=== PATIENT | female | born 1945 | race Caucasian/White ===

== ENCOUNTER → 2018-08-09 | Day surgery (SDC) | payer MEDICARE, OTHER ==
[2018-08-07 15:03] LABS: BASOPHILS # (AUTO) 0.1 (0.0-0.1); BASOPHILS % 0.8 % (0.0-1.0); EOSINOPHILS # (AUTO) 0.6 (0.0-0.4); EOSINOPHILS % 8.5 % (0.0-6.0); HEMATOCRIT 39.7 % (34.2-44.1); LYMPHOCYTES # (AUTO) 2.3 (1.0-3.2); LYMPHOCYTES % 30.3 % (18.0-39.1); MEAN CORPUSCULAR HEMOGLOBIN 31.1 pg (28-32); MEAN CORPUSCULAR HGB CONC 32.7 g/dL (31-35); MONOCYTES # (AUTO) 0.5 (0.2-0.8); MONOCYTES % 6.9 % (4.4-11.3); NEUTROPHILS # (AUTO) 4.1 (2.1-6.9); NEUTROPHILS % 53.4 % (38.7-80.0); PLATELET COUNT 346 x10e3/uL (140-360); RED BLOOD COUNT 4.18 x10e6/uL (3.6-5.1); RED CELL DISTRIBUTION WIDTH 13.4 % (11.7-14.4)
[~2018-08-09] MED LIST: ASPIR-LOW81 MG PO; ATENOLOL25 MG PO; BUPIVACAINE 0.25% 30ML SDV INJ ONE; CELEBREX PO; FENTANYL CITRATE/PF 100MCG/2 ML INJ ONE; IOPAMIDOL 200 MG/ML 20 ML VIAL IT ONE; LATANOPROST2.5 ML OP; LIDOCAINE HCL 1% 30ML-PF VIAL ONE; LIDOCAINE HCL 2% LOCAL INJ 5 ML SDV VIAL INJ ONE; METOPROLOL SUCC25 MG PO; MIDAZOLAM HCL 2 MG/2 ML VIAL ONE; PROPOFOL IV EMULSION 10 MG/ML 20 ML VIAL ONE; TRIAMCINOLONE ACET 40 MG/ML VIAL ONE; ULTRAM50 MG PO; XANAX XR1 MG PO; XOPENEX HFA15 GM INH; XOPENEX0.31 MG/3 INH; ZYRTEC10 M3 PO; vitamin b12 PO
[2018-08-09 08:05] VITALS: BP 129/87
== END | disposition home or self-care (01) ==
LOC: OR 05:38
PROVIDERS: ATTEND Physical Medicine & Rehabilitation Pain Medicine
DX: M46.1 Sacroiliitis, not elsewhere classified (principal); M62.838 Other muscle spasm; M79.18 Myalgia, other site; M54.16 Radiculopathy, lumbar region; J44.9 Chronic obstructive pulmonary disease, unspecified; I10 Essential (primary) hypertension; F17.210 Nicotine dependence, cigarettes, uncomplicated; Z01.810 Encounter for preprocedural cardiovascular examination; Z01.812 Encounter for preprocedural laboratory examination; Z79.82 Long term (current) use of aspirin
CPT/HCPCS: 20552; G0260; 36415; 76000; 85025; 93005; J2001; J2250; J3010; J3301; Q9967

== ENCOUNTER → 2019-07-18 | Day surgery (SDC) | payer MEDICARE, OTHER ==
[2019-07-15 13:05] LABS: BASOPHILS % 0.7 % (0.0-1.0); EOSINOPHILS # (AUTO) 0.3 (0.0-0.4); EOSINOPHILS % 6.1 % (0.0-6.0); HEMATOCRIT 37.8 % (34.2-44.1); HEMOGLOBIN 11.9 g/dL (12.0-16.0); LYMPHOCYTES # (AUTO) 1.7 (1.0-3.2); LYMPHOCYTES % 29.8 % (18.0-39.1); MEAN CORPUSCULAR HEMOGLOBIN 29.6 pg (28-32); MEAN CORPUSCULAR HGB CONC 31.5 g/dL (31-35); MONOCYTES # (AUTO) 0.5 (0.2-0.8); MONOCYTES % 9.1 % (4.4-11.3); NEUTROPHILS % 53.9 % (38.7-80.0); PLATELET COUNT 264 x10e3/uL (140-360); RED BLOOD COUNT 4.02 x10e6/uL (3.6-5.1); RED CELL DISTRIBUTION WIDTH 13.3 % (11.7-14.4)
[~2019-07-18] MED LIST changes: +ALPRAZOLAM1 MG PO; +ASPIR 8181 MG PO; +MAGNESIUM OXID400 MG PO; +MELOXICAM7.5 MG PO; +POTASSIUM CITR10 MEQ PO; +VIT B12 PO; +XOPENEX0.63 MG/3 INH; +ZYRTEC-D TABLE1 EACH PO
[2019-07-18 07:30] VITALS: BP 117/60
--- NOTE | 2019-07-18 09:27 | Diagnostic Imaging Report ---
OR Fluoroscopy: IMPRESSION: Fluoroscopy service provided in the OR. Interpretation not requested. Signed by: Jonathan Chilel MD on 07/18/2019 9:24 AM
--- OUTSIDE RECORDS SUMMARY | 2019-07-18 10:32 | XMS REPORT ---
Author Author [facility] Organization [facility] Address [address] [place] [address] Phone Unavailable Care Team Providers Care Lens Generator Name Role Phone Sunitha GARRETT Attphys Unavailable JOVANNA NAYAK Attphys Unavailable Problems This patient has no known problems. Allergies, Adverse Reactions, Alerts This patient has no known allergies or adverse reactions. Medications This patient has no known medications. Procedures This patient has no known procedures. Results Test Description Test Time Test Comments Results Result Comments Source FLURO UP TO 1 HR-GENERAL 2019-07-18 09:24:00 [place] [address] Patient Name: JYANA KUMAR MR #: [id number] : 1945 Age/Sex: 74/F Req #: [id number] Adm Physician: Ordered by: MARLON GARRETT MD Report #: [id number] Location: OR Room/Bed: Procedure: [id number] DX/FLURO UP TO 1 HR-GENERAL Exam Date: 07/18/19 Exam Time: 0650 REPORT STATUS: Signed OR Fluoroscopy: IMPRESSION: Fluoroscopy service provided in the OR. Interpretation not requested. Signed by: Johanna Juan MD on 07/18/2019 9:24 AM Dictated By: JOHANNA JUAN MD 3 Transcribed By: MELINDA on 07/18/19923 COPY TO: MARLON GARRETT MD KNEE LEFT THREE VIEWS 2018-11-12 11:33:00 [place] [address] Patient Name: JAYNA KUMAR MR #: [id number] : 1945 Age/Sex: 73/F Req #: [id number] Adm Physician: Ordered by: JOVANNA NAYAK MD Report #: [id number] Location: [facility] Room/Bed: Procedure: [id number] DX/KNEE LEFT THREE VIEWS Exam Date: 11/12/18 Exam Time: 1120 REPORT STATUS: Signed EXAMINATION: KNEE LEFT THREE VIEWS INDICATION: Left knee pain COMPARISON: None FINDINGS: No acute fracture or dislocation. Alignment is anatomic. No substantial degenerative change. The soft tissues appear unremarkable. No joint effusion. IMPRESSION: No acute osseous injury. Signed by: Colette Cobos MD on 11/12/2018 11:33 AM Dictated By: COLETTE COBOS MD 113 Transcribed By: MELINDA on 11/12/18 113 COPY TO: JOVANNA NAYAK MD HIP LEFT 2-3 VW (+/- PELVIS) 2018-11-12 11:32:00 [place] [address] Patient Name: JAYNA KUMAR MR #: [id number] : 1945 Age/Sex: 73/F Req #: [id number] Adm Physician: Ordered by: JOVANNA NAYAK MD Report #: [id number] Location: RAD Room/Bed: Procedure: [id number] DX/HIP LEFT 2-3 VW (+/- PELVIS) Exam Date: Exam Time: REPORT STATUS: Signed EXAMINATION: HIP LEFT 2-3 VW (+/- PELVIS) INDICATION: Left hip pain COMPARISON: None FINDINGS: No acute fracture or dislocation. Severe degenerative changes of the left hip joint with [id number]-[id number] contact, osteophyte formation, and subchondral sclerosis. IMPRESSION: No acute osseous injury. Severe left hip degenerative changes. Signed by: Colette Cobos MD on 11/12/2018 11:32 AM Dictated By: COLETTE COBOS MD 1132 Transcribed By: MELINDA on 11/12/18 1132 COPY TO: JOVANNA NAYAK MD US EXTREMITY COFFEY NON-VAS 2018-08-23 15:57:00 [place] [address] Patient Name: JAYNA KUMAR MR #: [id number] : 1945 Age/Sex: 73/F Req #: [id number] Adm Physician: Ordered by: MARLON GARRETT MD Report #: [id number] Location: Room/Bed: Procedure: [id number] US/US EXTREMITY COFFEY NON-VAS Exam Date: 08/23/18 Exam Time: 1519 REPORT STATUS: Signed Exam: Ultrasound of the medial left thigh History: Left thigh tenderness Comparison: None available Findings: Real-time evaluation of the medial left thigh and the right medial thigh for comparison reveals no evidence of a soft tissue mass abscess or significant cellulitis. Impression: Normal study. Signed by: Dr. Eh Ott DO on 08/23/2018 3:58 PM Dictated By: EH OTT DO 1558 Transcribed By: MELINDA on 08/23/18 1558 COPY TO: MARLON GARRETT MD
== END | disposition home or self-care (01) ==
LOC: OR 05:38
PROVIDERS: ATTEND Physical Medicine & Rehabilitation Pain Medicine
DX: M46.1 Sacroiliitis, not elsewhere classified (principal); G57.00 Lesion of sciatic nerve, unspecified lower limb; M70.62 Trochanteric bursitis, left hip; M16.12 Unilateral primary osteoarthritis, left hip; M62.838 Other muscle spasm; J44.9 Chronic obstructive pulmonary disease, unspecified; Z01.810 Encounter for preprocedural cardiovascular examination; Z01.812 Encounter for preprocedural laboratory examination; Z11.59 Encounter for screening for other viral diseases; Z87.891 Personal history of nicotine dependence
CPT/HCPCS: 20552; 20610; G0260; 36415; 76000; 85025; 87635; 93005; J2001; J2250; J3010; J3301; Q9967

== ENCOUNTER → 2019-09-12 | Day surgery (SDC) | payer MEDICARE, OTHER ==
[2019-09-06 15:58] LABS: BASOPHILS # (AUTO) 0.1 (0.0-0.1); BASOPHILS % 0.7 % (0.0-1.0); EOSINOPHILS # (AUTO) 0.2 (0.0-0.4); EOSINOPHILS % 2.4 % (0.0-6.0); LYMPHOCYTES # (AUTO) 1.9 (1.0-3.2); LYMPHOCYTES % 24.4 % (18.0-39.1); MEAN CORPUSCULAR HEMOGLOBIN 30.1 pg (28-32); MEAN CORPUSCULAR HGB CONC 31.6 g/dL (31-35); MEAN CORPUSCULAR VOLUME 95.2 fL (81-99); MONOCYTES # (AUTO) 0.6 (0.2-0.8); MONOCYTES % 8.2 % (4.4-11.3); NEUTROPHILS # (AUTO) 4.9 (2.1-6.9); PLATELET COUNT 276 x10e3/uL (140-360); RED BLOOD COUNT 3.99 x10e6/uL (3.6-5.1); RED CELL DISTRIBUTION WIDTH 14.7 % (11.7-14.4)
[~2019-09-12] MED LIST changes: -BUPIVACAINE 0.25% 30ML SDV INJ ONE; -FENTANYL CITRATE/PF 100MCG/2 ML INJ ONE; -MIDAZOLAM HCL 2 MG/2 ML VIAL ONE
[2019-09-12 08:30] VITALS: BP 124/64
== END | disposition home or self-care (01) ==
LOC: OR 05:25
PROVIDERS: ATTEND Physical Medicine & Rehabilitation Pain Medicine
DX: M16.12 Unilateral primary osteoarthritis, left hip (principal); M70.62 Trochanteric bursitis, left hip; M46.1 Sacroiliitis, not elsewhere classified; J44.9 Chronic obstructive pulmonary disease, unspecified; I10 Essential (primary) hypertension; Z01.810 Encounter for preprocedural cardiovascular examination; Z01.812 Encounter for preprocedural laboratory examination; Z11.59 Encounter for screening for other viral diseases
CPT/HCPCS: 20610; 36415; 77002; 85025; 93005; J2001 ×2; J2704; J3301; Q9967; U0002; 76000

== ENCOUNTER → 2019-11-21 | Day surgery (SDC) | payer MEDICARE, OTHER ==
[2019-11-18 14:39] LABS: BASOPHILS # (AUTO) 0.1 (0.0-0.1); BASOPHILS % 0.8 % (0.0-1.0); EOSINOPHILS # (AUTO) 0.2 (0.0-0.4); EOSINOPHILS % 3.7 % (0.0-6.0); HEMATOCRIT 43.2 % (34.2-44.1); HEMOGLOBIN 13.5 g/dL (12.0-16.0); LYMPHOCYTES # (AUTO) 1.8 (1.0-3.2); LYMPHOCYTES % 30.3 % (18.0-39.1); MEAN CORPUSCULAR HEMOGLOBIN 30.1 pg (28-32); MEAN CORPUSCULAR HGB CONC 31.3 g/dL (31-35); MEAN CORPUSCULAR VOLUME 96.4 fL (81-99); MONOCYTES # (AUTO) 0.5 (0.2-0.8); MONOCYTES % 7.7 % (4.4-11.3); NEUTROPHILS # (AUTO) 3.4 (2.1-6.9); NEUTROPHILS % 57.2 % (38.7-80.0); PLATELET COUNT 377 x10e3/uL (140-360); RED BLOOD COUNT 4.48 x10e6/uL (3.6-5.1); RED CELL DISTRIBUTION WIDTH 12.6 % (11.7-14.4)
[~2019-11-21] MED LIST changes: +TYLENOL # 31 EA PO
[2019-11-21 07:25] VITALS: BP 133/72
== END | disposition home or self-care (01) ==
LOC: OR 05:19
PROVIDERS: ATTEND Physical Medicine & Rehabilitation Pain Medicine
DX: M16.12 Unilateral primary osteoarthritis, left hip (principal); M46.1 Sacroiliitis, not elsewhere classified; M70.62 Trochanteric bursitis, left hip; I10 Essential (primary) hypertension; J44.9 Chronic obstructive pulmonary disease, unspecified; F41.9 Anxiety disorder, unspecified; Z01.812 Encounter for preprocedural laboratory examination; Z11.59 Encounter for screening for other viral diseases
CPT/HCPCS: 20610; 36415; 77002; 85025; 88305; J2001 ×2; J2704; J3301; Q9967; U0002; 77003; 88112

== ENCOUNTER 2019-12-23 08:05 | Observation (INO) | payer MEDICARE, OTHER ==
[~2019-12-23] VITALS: Ht 160 cm; Wt 59.9 kg
[2019-12-23] MEDS: SODIUM CHLORIDE 0.9% 1000ML 1,000 ML IV SCH ×2 (03:00→17:08)
[~2019-12-23 08:05] MED LIST changes: +BUPIVACAINE 7.5MG/ML /DEXTROSE 82.5MG/ML 2 ML AMP INJ ONE; -IOPAMIDOL 200 MG/ML 20 ML VIAL IT ONE; -LIDOCAINE HCL 1% 30ML-PF VIAL ONE; -LIDOCAINE HCL 2% LOCAL INJ 5 ML SDV VIAL INJ ONE; -PROPOFOL IV EMULSION 10 MG/ML 20 ML VIAL ONE; +ROPIVACAINE 246.25 MG, EPINEPHRINE HCL 1:1000 1ML 0.5 MG, CLONIDINE HCL 0.08 MG, KETORO... INJ ONE; -TRIAMCINOLONE ACET 40 MG/ML VIAL ONE
[2019-12-23] MEDS ORDERED: CELECOXIB 200 MG CAP ONE (08:53)
[2019-12-23] MEDS ORDERED: DEXAMETHASONE SOD PHOS 10 MG/1 ML VIAL ONE (08:54)
[2019-12-23] MEDS ORDERED: CEFAZOLIN SOD 1 GM/NS 50ML 100 ML IV ONE (08:54)
[2019-12-23] MEDS ORDERED: GABAPENTIN 300 MG CAP ONE (08:54)
[2019-12-23] MEDS ORDERED: VANCOMYCIN HCL 1,000 MG ONE (09:38)
[2019-12-23] MEDS ORDERED: SODIUM CHLORIDE 0.9% 500ML 500 ML ONE (09:39)
[2019-12-23] MEDS ORDERED: TRANEXAMIC ACID 1,000 MG/10 ML ML ONE (09:39)
[2019-12-23] MEDS ORDERED: DOCUSATE SODIUM 100 MG CAP PO PRN (11:45)
[2019-12-23] MEDS ORDERED: KETOROLAC TROMETHAMINE 30 MG/ML VIAL IV PRN (11:45)
[2019-12-23] MEDS ORDERED: ACETAMINOPHEN 650 MG SUPP PR PRN (11:45)
[2019-12-23] MEDS ORDERED: ONDANSETRON HCL INJ 2MG/ML 2ML 2 MG/ML VIAL IV PRN (11:45)
[2019-12-23] MEDS ORDERED: HYDROCODONE/APAP 5MG-325MG TAB PO PRN (11:45)
[2019-12-23] MEDS ORDERED: DIPHENHYDRAMINE HCL INJ 50 MG/ML VIAL IV PRN (11:45)
[2019-12-23] MEDS ORDERED: FENTANYL CITRATE/PF 100MCG/2 ML INJ ONE (12:45)
[2019-12-23] MEDS ORDERED: MIDAZOLAM HCL 2 MG/2 ML VIAL ONE (12:45)
[2019-12-23 15:21] VITALS: BP 126/66
[2019-12-23 15:30] VITALS: BP 126/66
[2019-12-23] MEDS ORDERED: ACETAMINOPHEN/CODEINE 300MG - 30MG TAB PO PRN (15:30)
[2019-12-23] MEDS ORDERED: ALPRAZOLAM 0.5 MG PO PRN (15:30)
[2019-12-23] MEDS ORDERED: LEVALBUTEROL HCL SOLN NEBU 0.63 MG/3 ML NEB INH PRN (15:30)
[2019-12-23] MEDS ORDERED: ACETAMINOPHEN 1000 MG/100 ML IV PRN (16:00)
[2019-12-23] MEDS: CEFAZOLIN SOD 1 GM/NS 50ML 50 ML IV SCH (17:08)
[2019-12-23] MEDS: CELECOXIB 100 MG CAP PO SCH (17:08)
[2019-12-23] MEDS: ASPIRIN 325 MG TAB PO SCH (17:08)
[2019-12-23] MEDS: HYDROCODONE/APAP 7.5MG-325MG 1 EA TAB PO PRN (18:28)
[2019-12-23] MEDS ORDERED: PROPOFOL IV EMULSION 10 MG/ML 20 ML VIAL ONE (19:25)
[2019-12-23] MEDS ORDERED: ETOMIDATE 2 MG/ML 10 ML INJ IV ONE (19:25)
[2019-12-23 20:00] VITALS: BP 110/64
[2019-12-23] MEDS ORDERED: LORATADINE 10 MG TAB PO SCH (21:00)
[2019-12-23] MEDS ORDERED: ZOLPIDEM TARTRATE 5 MG TAB PO PRN (21:00)
[2019-12-23] MEDS ORDERED: LATANOPROST(OPTH) 2.5 ML BTL OP SCH (21:00)
[2019-12-24] VITALS: BP 115/56
[2019-12-24] MEDS: CEFAZOLIN SOD 1 GM/NS 50ML 50 ML IV SCH ×2 (03:00→09:35)
[2019-12-24 04:00] VITALS: BP 120/54
[2019-12-24 05:50] LABS: BASOPHILS % 0.2 % (0.0-1.0); HEMOGLOBIN 10.1 g/dL (12.0-16.0); LYMPHOCYTES # (AUTO) 0.9 (1.0-3.2); LYMPHOCYTES % 8.3 % (18.0-39.1); MEAN CORPUSCULAR HEMOGLOBIN 30.3 pg (28-32); MEAN CORPUSCULAR HGB CONC 31.6 g/dL (31-35); MEAN CORPUSCULAR VOLUME 96.1 fL (81-99); MONOCYTES # (AUTO) 1.1 (0.2-0.8); MONOCYTES % 9.5 % (4.4-11.3); NEUTROPHILS # (AUTO) 9.2 (2.1-6.9); NEUTROPHILS % 81.6 % (38.7-80.0); RED BLOOD COUNT 3.33 x10e6/uL (3.6-5.1); RED CELL DISTRIBUTION WIDTH 12.4 % (11.7-14.4)
[2019-12-24 06:24] LABS: ALANINE AMINOTRANSFERASE 11 IU/L (0-55); ALBUMIN 3.1 g/dL (3.5-5.0); ALBUMIN/GLOBULIN RATIO 1.3 (0.8-2.0); ALKALINE PHOSPHATASE 61 IU/L (40-150); ANION GAP 13.1 mmol/L (8-16); BLOOD UREA NITROGEN 15 mg/dL (7-26); BUN/CREATININE RATIO 20 (6-25); CALCIUM 8.2 mg/dL (8.4-10.2); CARBON DIOXIDE 21 mmol/L (22-29); CHLORIDE 110 mmol/L (98-107); CREATININE, SERUM 0.75 mg/dL (0.57-1.11); EST GLOMERULAR FILTRATION RATE > 60 ML/MIN (60-); GLUCOSE 130 mg/dL (74-118); POTASSIUM 4.1 mmol/L (3.5-5.1); SODIUM 140 mmol/L (136-145)
[2019-12-24 07:42] LABS: PLATELET COUNT 315 x10e3/uL (140-360)
[2019-12-24] MEDS: SODIUM CHLORIDE 0.9% 1000ML 1,000 ML IV SCH (07:45)
[2019-12-24 08:05] VITALS: BP 104/55
[2019-12-24] MEDS ORDERED: METOPROLOL SUCCINATE 25 MG TAB XL PO SCH (09:00)
[2019-12-24] MEDS ORDERED: CYANOCOBALAMIN 1,000 MCG TAB PO SCH (09:00)
[2019-12-24] MEDS ORDERED: MAGNESIUM OXIDE 400 MG TAB PO SCH (09:00)
[2019-12-24] MEDS ORDERED: VITAMIN B12 1000 MG PO SCH (09:00)
[2019-12-24] MEDS: ASPIRIN 325 MG TAB PO SCH (09:35)
[2019-12-24] MEDS: CELECOXIB 100 MG CAP PO SCH (09:35)
[2019-12-24] MEDS: HYDROCODONE/APAP 7.5MG-325MG 1 EA TAB PO PRN (11:39)
[2019-12-24 12:20] VITALS: BP 104/61
[2019-12-24] MEDS ORDERED: ONDANSETRON HCL 4 MG ORAL DISINTEGRATING TAB PO PRN (13:45)
[2019-12-24] MEDS ORDERED: ASPIRIN 325 MG TAB PO SCH (17:00)
== END 2019-12-24 14:02 | disposition home health service (06) ==
LOC: OR 08:05 → PACU V 11:42 → MED/SURG 14:42
PROVIDERS: ADMIT Specialist; ATTEND Specialist
DX: M16.12 Unilateral primary osteoarthritis, left hip (principal); J44.9 Chronic obstructive pulmonary disease, unspecified; M81.0 Age-related osteoporosis without current pathological fracture; I11.9 Hypertensive heart disease without heart failure; Z87.891 Personal history of nicotine dependence; Z01.812 Encounter for preprocedural laboratory examination; Z11.59 Encounter for screening for other viral diseases
CPT/HCPCS: 27130; 36415; 72170; 80053; 85025; 86850; 86900; 86920; 97110 ×2; 97116 ×2; 97161; C1713 ×3; C1776 ×2; G0378 ×2; J0171; J0690 ×2; J1100; J1885; J2250; J2405; J2704; J2795; J3010; J3370; J7030 ×2; J7040; U0002

== ENCOUNTER → 2020-04-17 | Outpatient (CLI) | payer MEDICARE, OTHER ==
[~2020-04-17] MED LIST changes: +ASPIRIN81 MG PO; -BUPIVACAINE 7.5MG/ML /DEXTROSE 82.5MG/ML 2 ML AMP INJ ONE; +CALCIUM600 MG PO; +MAGNESIUM PO; -ROPIVACAINE 246.25 MG, EPINEPHRINE HCL 1:1000 1ML 0.5 MG, CLONIDINE HCL 0.08 MG, KETORO... INJ ONE; +VITAMIN D325 MCG PO
== END ==
LOC: RAD 13:01
PROVIDERS: ATTEND Internal Medicine
DX: Z01.818 Encounter for other preprocedural examination (principal); Z11.59 Encounter for screening for other viral diseases
CPT/HCPCS: 71046

== ENCOUNTER 2020-04-21 08:01 | Observation (INO) | payer MEDICARE, OTHER ==
[2020-04-17 13:23] LABS: BASOPHILS % 0.7 % (0.0-1.0); EOSINOPHILS # (AUTO) 0.3 (0.0-0.4); EOSINOPHILS % 4.4 % (0.0-6.0); HEMATOCRIT 37.5 % (34.2-44.1); HEMOGLOBIN 11.7 g/dL (12.0-16.0); LYMPHOCYTES # (AUTO) 1.8 (1.0-3.2); LYMPHOCYTES % 31.6 % (18.0-39.1); MEAN CORPUSCULAR HEMOGLOBIN 29.2 pg (28-32); MEAN CORPUSCULAR HGB CONC 31.2 g/dL (31-35); MEAN CORPUSCULAR VOLUME 93.5 fL (81-99); MONOCYTES # (AUTO) 0.5 (0.2-0.8); MONOCYTES % 9.4 % (4.4-11.3); NEUTROPHILS # (AUTO) 3.1 (2.1-6.9); NEUTROPHILS % 53.7 % (38.7-80.0); PLATELET COUNT 331 x10e3/uL (140-360); RED BLOOD COUNT 4.01 x10e6/uL (3.6-5.1)
[2020-04-17 14:03] LABS: ALANINE AMINOTRANSFERASE 7 IU/L (0-55); ALBUMIN 4.1 g/dL (3.5-5.0); ALBUMIN/GLOBULIN RATIO 1.4 (0.8-2.0); ALKALINE PHOSPHATASE 113 IU/L (40-150); ANION GAP 14.1 mmol/L (8-16); BLOOD UREA NITROGEN 17 mg/dL (7-26); BUN/CREATININE RATIO 22 (6-25); CALCIUM 9.1 mg/dL (8.4-10.2); CARBON DIOXIDE 27 mmol/L (22-29); CHLORIDE 102 mmol/L (98-107); CREATININE, SERUM 0.76 mg/dL (0.57-1.11); EST GLOMERULAR FILTRATION RATE > 60 ML/MIN (60-); GLUCOSE 81 mg/dL (74-118); POTASSIUM 4.1 mmol/L (3.5-5.1); SODIUM 139 mmol/L (136-145)
[~2020-04-21] VITALS: Ht 160 cm; Wt 60.3 kg
[2020-04-21] VITALS (7 sets, daily range): BP systolic 107–116; BP diastolic 55–96
[~2020-04-21 08:01] MED LIST changes: +ROPIVACAINE 246.25 MG, EPINEPHRINE HCL 1:1000 1ML 0.5 MG, CLONIDINE HCL 0.08 MG, KETORO... INJ ONE
[2020-04-21] MEDS ORDERED: DEXAMETHASONE SOD PHOS 10 MG/1 ML VIAL ONE (08:20)
[2020-04-21] MEDS ORDERED: CELECOXIB 200 MG CAP ONE (08:20)
[2020-04-21] MEDS ORDERED: CEFAZOLIN SOD 1 GM/NS 50ML 100 ML IV ONE (08:21)
[2020-04-21] MEDS ORDERED: GABAPENTIN 300 MG CAP ONE (08:21)
[2020-04-21] MEDS ORDERED: BUPIVACAINE 7.5MG/ML /DEXTROSE 82.5MG/ML 2 ML AMP INJ ONE (09:07)
[2020-04-21] MEDS ORDERED: TRANEXAMIC ACID 1,000 MG/10 ML ML ONE (10:22)
[2020-04-21] MEDS ORDERED: SODIUM CHLORIDE 0.9% 500ML 500 ML ONE (10:23)
[2020-04-21] MEDS ORDERED: DIPHENHYDRAMINE HCL INJ 50 MG/ML VIAL IV PRN (12:15)
[2020-04-21] MEDS ORDERED: DOCUSATE SODIUM 100 MG CAP PO PRN (12:15)
[2020-04-21] MEDS ORDERED: KETOROLAC TROMETHAMINE 30 MG/ML VIAL IV PRN (12:15)
[2020-04-21] MEDS ORDERED: ZOLPIDEM TARTRATE 5 MG TAB PO PRN (12:15)
[2020-04-21] MEDS ORDERED: ACETAMINOPHEN 650 MG SUPP PR PRN (12:15)
[2020-04-21] MEDS ORDERED: HYDROCODONE/APAP 5MG-325MG TAB PO PRN (12:15)
[2020-04-21] MEDS ORDERED: PROPOFOL IV EMULSION 10 MG/ML 20 ML VIAL ONE (12:41)
[2020-04-21] MEDS ORDERED: LIDOCAINE HCL 2% LOCAL INJ 5 ML SDV VIAL INJ ONE (12:41)
[2020-04-21] MEDS ORDERED: ONDANSETRON HCL INJ 2MG/ML 2ML 2 MG/ML VIAL ONE (12:41)
[2020-04-21] MEDS ORDERED: EPHEDRINE SULFATE INJ 50 MG/ML VIAL ONE (12:41)
[2020-04-21] MEDS ORDERED: ONDANSETRON HCL INJ 2MG/ML 2ML 2 MG/ML VIAL IV PRN (13:30)
[2020-04-21] MEDS ORDERED: SODIUM CHLORIDE 0.9% 1000ML 1,000 ML IV SCH (15:30)
[2020-04-21] MEDS ORDERED: LEVALBUTEROL HCL SOLN NEBU 0.63 MG/3 ML NEB INH PRN (16:45)
[2020-04-21] MEDS: ASPIRIN 325 MG TAB PO SCH (16:47)
[2020-04-21] MEDS ORDERED: CELECOXIB 200 MG CAP PO SCH (17:00)
[2020-04-21] MEDS: CEFAZOLIN SOD 1 GM/NS 50ML 50 ML IV SCH (17:32)
[2020-04-21] MEDS ORDERED: LATANOPROST(OPTH) 2.5 ML BTL OP SCH (21:00)
[2020-04-21] MEDS ORDERED: LORATADINE 10 MG TAB PO SCH (21:00)
[2020-04-22] VITALS (7 sets, daily range): BP systolic 94–115; BP diastolic 43–55
[2020-04-22] MEDS: HYDROCODONE/APAP 7.5MG-325MG 1 EA TAB PO PRN ×2 (01:10→03:24)
[2020-04-22] MEDS: CEFAZOLIN SOD 1 GM/NS 50ML 50 ML IV SCH ×2 (03:22→07:52)
[2020-04-22 05:41] LABS: BASOPHILS % 0.2 % (0.0-1.0); HEMOGLOBIN 9.2 g/dL (12.0-16.0); LYMPHOCYTES % 8.4 % (18.0-39.1); MEAN CORPUSCULAR HEMOGLOBIN 29.5 pg (28-32); MEAN CORPUSCULAR HGB CONC 31.7 g/dL (31-35); MEAN CORPUSCULAR VOLUME 92.9 fL (81-99); MONOCYTES # (AUTO) 0.7 (0.2-0.8); MONOCYTES % 5.6 % (4.4-11.3); NEUTROPHILS # (AUTO) 9.9 (2.1-6.9); NEUTROPHILS % 85.5 % (38.7-80.0); PLATELET COUNT 285 x10e3/uL (140-360); RED BLOOD COUNT 3.12 x10e6/uL (3.6-5.1)
[2020-04-22 06:05] LABS: ALANINE AMINOTRANSFERASE 14 IU/L (0-55); ALBUMIN 3.1 g/dL (3.5-5.0); ALBUMIN/GLOBULIN RATIO 1.2 (0.8-2.0); ALKALINE PHOSPHATASE 86 IU/L (40-150); ANION GAP 14.3 mmol/L (8-16); BLOOD UREA NITROGEN 18 mg/dL (7-26); BUN/CREATININE RATIO 20 (6-25); CALCIUM 8.5 mg/dL (8.4-10.2); CARBON DIOXIDE 24 mmol/L (22-29); CHLORIDE 104 mmol/L (98-107); EST GLOMERULAR FILTRATION RATE > 60 ML/MIN (60-); GLUCOSE 180 mg/dL (74-118); POTASSIUM 4.3 mmol/L (3.5-5.1); SODIUM 138 mmol/L (136-145)
[2020-04-22] MEDS ORDERED: SODIUM CHLORIDE 0.9% 250ML 250 ML IV ONE (07:45)
[2020-04-22] MEDS: ASPIRIN 325 MG TAB PO SCH (07:47)
[2020-04-22] MEDS ORDERED: MAGNESIUM OXIDE 400 MG TAB PO SCH (09:00)
[2020-04-22] MEDS ORDERED: METOPROLOL SUCCINATE 25 MG TAB XL PO SCH (09:00)
[2020-04-22] MEDS ORDERED: ACETAMINOPHEN 1000 MG/100 ML IV PRN (12:15)
== END 2020-04-22 12:42 | disposition home or self-care (01) ==
LOC: OR 08:01 → PACU V 12:09 → MED/SURG 13:14
PROVIDERS: ADMIT Specialist; ATTEND Specialist
DX: M16.0 Bilateral primary osteoarthritis of hip (principal); I10 Essential (primary) hypertension; Z96.642 Presence of left artificial hip joint; F41.9 Anxiety disorder, unspecified; E78.5 Hyperlipidemia, unspecified; I11.9 Hypertensive heart disease without heart failure; H40.9 Unspecified glaucoma; M81.0 Age-related osteoporosis without current pathological fracture; Z96.641 Presence of right artificial hip joint; Z20.822 Contact with and (suspected) exposure to COVID-19; Z01.818 Encounter for other preprocedural examination
CPT/HCPCS: 27130; 36415 ×2; 72170; 80053 ×2; 85025 ×2; 86850; 86900; 86920; 93005; 97116; 97162; 97530 ×2; C1713 ×2; C1776 ×3; G0378 ×2; J0171; J0690 ×2; J1100; J1885; J2001; J2405; J2704; J2795; J7030; J7040; J7050; U0002

== ENCOUNTER → 2021-05-18 | Outpatient (CLI) | payer MEDICARE, OTHER ==
[~2021-05-18] MED LIST changes: +DIATRIZOATE MEGL/DIATRIZOA SOD 30 ML BTL PO ONE; +IOPAMIDOL 370 MG/ML 200 ML INFUS..BTL INJ ONE; -ROPIVACAINE 246.25 MG, EPINEPHRINE HCL 1:1000 1ML 0.5 MG, CLONIDINE HCL 0.08 MG, KETORO... INJ ONE; +SODIUM CHLORIDE 0.9% 50ML 50 ML ONE
[2021-05-18 15:35] LABS: CREATININE, SERUM 0.81 mg/dL (0.57-1.11)
== END ==
LOC: CT 14:05
PROVIDERS: ATTEND Internal Medicine
DX: K57.32 Diverticulitis of large intestine without perforation or abscess without bleeding (principal)
CPT/HCPCS: 36415; 74176; 82565; 84520; Q9967; 74177

== ENCOUNTER 2021-11-14 12:40 | Inpatient (IN) | payer OTHER ==
[~2021-11-14] VITALS: Ht 160 cm; Wt 60.3 kg
[~2021-11-14 12:40] MED LIST changes: -DIATRIZOATE MEGL/DIATRIZOA SOD 30 ML BTL PO ONE; -IOPAMIDOL 370 MG/ML 200 ML INFUS..BTL INJ ONE; -SODIUM CHLORIDE 0.9% 50ML 50 ML ONE
[2021-11-14] MEDS ORDERED: KETOROLAC TROMETHAMINE 30 MG/ML VIAL IM STA (12:56)
[2021-11-14] MEDS ORDERED: TETANUS/DIPHTHERIA TOX ADULT 0.5 ML SYR IM ONE (13:00)
[2021-11-14] MEDS ORDERED: HYDROCODONE/APAP 5MG-325MG TAB PO ONE (13:00)
[2021-11-14] MEDS ORDERED: ONDANSETRON HCL INJ 2MG/ML 2ML 2 MG/ML VIAL IV PRN (15:00)
[2021-11-14 17:30] VITALS: BP 161/85
[2021-11-14] MEDS ORDERED: ALPRAZOLAM 1 MG PO PRN (18:00)
[2021-11-14] MEDS ORDERED: LEVALBUTEROL HCL SOLN NEBU 0.63 MG/3 ML NEB INH PRN (18:00)
[2021-11-14 18:15] LABS: BASOPHILS % 0.3 % (0.0-1.0); EOSINOPHILS # (AUTO) 0.1 (0.0-0.4); EOSINOPHILS % 0.9 % (0.0-6.0); HEMATOCRIT 37.8 % (34.2-44.1); HEMOGLOBIN 11.6 g/dL (12.0-16.0); LYMPHOCYTES # (AUTO) 1.1 (1.0-3.2); LYMPHOCYTES % 8.3 % (18.0-39.1); MEAN CORPUSCULAR HEMOGLOBIN 30.1 pg (28-32); MEAN CORPUSCULAR HGB CONC 30.7 g/dL (31-35); MEAN CORPUSCULAR VOLUME 98.2 fL (81-99); MONOCYTES # (AUTO) 0.8 (0.2-0.8); NEUTROPHILS # (AUTO) 11.6 (2.1-6.9); NEUTROPHILS % 84.1 % (38.7-80.0); PLATELET COUNT 254 x10e3/uL (140-360); RED BLOOD COUNT 3.85 x10e6/uL (3.6-5.1); RED CELL DISTRIBUTION WIDTH 13.5 % (11.7-14.4)
[2021-11-14] MEDS ORDERED: KETOROLAC TROMETHAMINE 30 MG/ML VIAL IV PRN (18:15)
[2021-11-14 18:24] LABS: ANION GAP 18.9 mmol/L (8-16); CALCIUM 9.1 mg/dL (8.4-10.2); CREATININE, SERUM 0.83 mg/dL (0.57-1.11); POTASSIUM 3.9 mmol/L (3.5-5.1)
[2021-11-14 20:00] VITALS: BP 129/63
[2021-11-14 21:00] VITALS: BP 129/63
[2021-11-14] MEDS: LORATADINE 10 MG TAB PO SCH (21:00)
[2021-11-14] MEDS: LATANOPROST(OPTH) 2.5 ML BTL OP SCH (21:00)
[2021-11-14] MEDS: Morphine 4mg INJECTION 4 MG/ML INJ IV PRN (21:19)
[2021-11-15] VITALS (7 sets, daily range): BP systolic 142–178; BP diastolic 55–74
[2021-11-15] MEDS: SODIUM CHLORIDE 0.9% 1000ML 1,000 ML IV SCH ×2 (00:06→08:30)
[2021-11-15] MEDS: Morphine 4mg INJECTION 4 MG/ML INJ IV PRN ×3 (02:45→20:33)
[2021-11-15] MEDS ORDERED: XANAX1 MG PO (02:58)
[2021-11-15] MEDS ORDERED: ALPRAZOLAM 1 MG TAB PO PRN (03:00)
[2021-11-15 05:33] LABS: INR 0.9
[2021-11-15] MEDS: CYANOCOBALAMIN 1,000 MCG TAB PO SCH (08:27)
[2021-11-15] MEDS: CALCIUM CARBONATE 500 MG CHEWABLE TABS PO SCH (08:28)
[2021-11-15] MEDS: MAGNESIUM OXIDE 400 MG TAB PO SCH (08:28)
[2021-11-15] MEDS: METOPROLOL SUCCINATE 25 MG TAB XL PO SCH (08:28)
[2021-11-15] MEDS: CHOLECALCIFEROL 1,000 UNIT TAB PO SCH (08:28)
[2021-11-15] MEDS: ASPIRIN 81 MG CHEW TAB PO SCH (08:28)
[2021-11-15 08:38] LABS: BASOPHILS % 0.4 % (0.0-1.0); EOSINOPHILS # (AUTO) 0.2 (0.0-0.4); EOSINOPHILS % 2.8 % (0.0-6.0); HEMATOCRIT 32.2 % (34.2-44.1); HEMOGLOBIN 9.6 g/dL (12.0-16.0); LYMPHOCYTES # (AUTO) 1.4 (1.0-3.2); LYMPHOCYTES % 21.2 % (18.0-39.1); MEAN CORPUSCULAR HEMOGLOBIN 30.1 pg (28-32); MEAN CORPUSCULAR HGB CONC 29.8 g/dL (31-35); MEAN CORPUSCULAR VOLUME 100.9 fL (81-99); MONOCYTES # (AUTO) 0.6 (0.2-0.8); MONOCYTES % 8.8 % (4.4-11.3); NEUTROPHILS # (AUTO) 4.5 (2.1-6.9); NEUTROPHILS % 66.7 % (38.7-80.0); PLATELET COUNT 215 x10e3/uL (140-360); RED BLOOD COUNT 3.19 x10e6/uL (3.6-5.1); RED CELL DISTRIBUTION WIDTH 13.9 % (11.7-14.4)
[2021-11-15 08:47] LABS: ALBUMIN 3.2 g/dL (3.5-5.0); ALBUMIN/GLOBULIN RATIO 1.5 (0.8-2.0); CALCIUM 8.1 mg/dL (8.4-10.2); CREATININE, SERUM 0.8 mg/dL (0.57-1.11)
[2021-11-15] MEDS ORDERED: ALPRAZOLAM 0.5 MG TAB PO PRN (09:00)
[2021-11-15] MEDS: LATANOPROST(OPTH) 2.5 ML BTL OP SCH (20:29)
[2021-11-15] MEDS: LORATADINE 10 MG TAB PO SCH (20:29)
[2021-11-16] VITALS (7 sets, daily range): BP systolic 127–160; BP diastolic 57–67
[2021-11-16] MEDS: Morphine 4mg INJECTION 4 MG/ML INJ IV PRN (04:44)
[2021-11-16] MEDS: ASPIRIN 81 MG CHEW TAB PO SCH (04:56)
[2021-11-16 05:03] LABS: BASOPHILS % 0.6 % (0.0-1.0); EOSINOPHILS # (AUTO) 0.2 (0.0-0.4); EOSINOPHILS % 2.3 % (0.0-6.0); LYMPHOCYTES # (AUTO) 1.2 (1.0-3.2); LYMPHOCYTES % 17.9 % (18.0-39.1); MEAN CORPUSCULAR HGB CONC 32.3 g/dL (31-35); MONOCYTES # (AUTO) 0.6 (0.2-0.8); NEUTROPHILS # (AUTO) 4.8 (2.1-6.9); NEUTROPHILS % 69.9 % (38.7-80.0); PLATELET COUNT 208 x10e3/uL (140-360); RED BLOOD COUNT 3.33 x10e6/uL (3.6-5.1); RED CELL DISTRIBUTION WIDTH 13.7 % (11.7-14.4)
[2021-11-16 05:11] LABS: MEAN CORPUSCULAR VOLUME 93.1 fL (81-99)
[2021-11-16 05:52] LABS: ALBUMIN 3.3 g/dL (3.5-5.0); ALBUMIN/GLOBULIN RATIO 1.3 (0.8-2.0); ANION GAP 14.1 mmol/L (8-16); CALCIUM 8.3 mg/dL (8.4-10.2); CREATININE, SERUM 0.7 mg/dL (0.57-1.11); POTASSIUM 4.1 mmol/L (3.5-5.1)
[2021-11-16] MEDS: CYANOCOBALAMIN 1,000 MCG TAB PO SCH (08:20)
[2021-11-16] MEDS: MAGNESIUM OXIDE 400 MG TAB PO SCH (08:20)
[2021-11-16] MEDS: CHOLECALCIFEROL 1,000 UNIT TAB PO SCH (08:20)
[2021-11-16] MEDS: CALCIUM CARBONATE 500 MG CHEWABLE TABS PO SCH (08:20)
[2021-11-16] MEDS ORDERED: DEXAMETHASONE SOD PHOS INJ 4 MG/ML SDV ONE (08:41)
[2021-11-16] MEDS ORDERED: SEVOFLURANE INHAL SOLN 250 ML PEN BTL ONE (08:41)
[2021-11-16] MEDS ORDERED: KETOROLAC TROMETHAMINE 30 MG/ML VIAL ONE (08:41)
[2021-11-16] MEDS ORDERED: LIDOCAINE HCL 2% LOCAL INJ 5 ML SDV VIAL INJ ONE (08:41)
[2021-11-16] MEDS ORDERED: POVIDONE IODINE 0.05% 0.05 % ML PO ONE (08:41)
[2021-11-16] MEDS ORDERED: PROPOFOL IV EMULSION 10 MG/ML 20 ML VIAL ONE (08:41)
[2021-11-16] MEDS ORDERED: ONDANSETRON HCL INJ 2MG/ML 2ML 2 MG/ML VIAL ONE (08:41)
[2021-11-16] MEDS: METOPROLOL SUCCINATE 25 MG TAB XL PO SCH (08:56)
[2021-11-16] MEDS ORDERED: ROPIVACAINE 0.5% 5 MG/ML 30 ML SDV ONE (11:51)
[2021-11-16] MEDS ORDERED: DOCUSATE SODIUM 100 MG CAP PO PRN (13:00)
[2021-11-16] MEDS ORDERED: HYDROCODONE/APAP 7.5MG-325MG 1 EA TAB PO PRN (13:00)
[2021-11-16] MEDS ORDERED: ACETAMINOPHEN 650 MG SUPP PR PRN (13:00)
[2021-11-16] MEDS ORDERED: HYDROCODONE/APAP 5MG-325MG TAB PO PRN (13:00)
[2021-11-16] MEDS ORDERED: ONDANSETRON HCL INJ 2MG/ML 2ML 2 MG/ML VIAL IV PRN (13:00)
[2021-11-16] MEDS ORDERED: DIPHENHYDRAMINE HCL INJ 50 MG/ML VIAL IV PRN (13:00)
[2021-11-16] MEDS ORDERED: FENTANYL CITRATE/PF 100MCG/2 ML INJ ONE (13:13)
[2021-11-16] MEDS ORDERED: MIDAZOLAM HCL 2 MG/2 ML VIAL ONE (13:13)
[2021-11-16] MEDS: SODIUM CHLORIDE 0.9% 1000ML 1,000 ML IV SCH ×2 (14:35→20:42)
[2021-11-16] MEDS: LORATADINE 10 MG TAB PO SCH (20:41)
[2021-11-16] MEDS: LATANOPROST(OPTH) 2.5 ML BTL OP SCH (20:41)
[2021-11-17 01:05] VITALS: BP 136/66
[2021-11-17 04:58] VITALS: BP 150/75
[2021-11-17] MEDS: Morphine 4mg INJECTION 4 MG/ML INJ IV PRN (05:22)
[2021-11-17 05:44] LABS: BASOPHILS % 0.3 % (0.0-1.0); EOSINOPHILS % 0.3 % (0.0-6.0); HEMATOCRIT 31.6 % (34.2-44.1); HEMOGLOBIN 10.2 g/dL (12.0-16.0); LYMPHOCYTES # (AUTO) 0.9 (1.0-3.2); LYMPHOCYTES % 12.8 % (18.0-39.1); MEAN CORPUSCULAR HEMOGLOBIN 30.4 pg (28-32); MEAN CORPUSCULAR HGB CONC 32.3 g/dL (31-35); MEAN CORPUSCULAR VOLUME 94.3 fL (81-99); MONOCYTES # (AUTO) 0.6 (0.2-0.8); MONOCYTES % 9.4 % (4.4-11.3); NEUTROPHILS # (AUTO) 5.1 (2.1-6.9); NEUTROPHILS % 76.9 % (38.7-80.0); PLATELET COUNT 196 x10e3/uL (140-360); RED BLOOD COUNT 3.35 x10e6/uL (3.6-5.1); RED CELL DISTRIBUTION WIDTH 13.5 % (11.7-14.4)
[2021-11-17 06:11] LABS: ANION GAP 16.1 mmol/L (8-16); CALCIUM 8.5 mg/dL (8.4-10.2); CREATININE, SERUM 0.68 mg/dL (0.57-1.11); POTASSIUM 4.1 mmol/L (3.5-5.1)
[2021-11-17 08:47] VITALS: BP 131/69
[2021-11-17] MEDS: MAGNESIUM OXIDE 400 MG TAB PO SCH (09:00)
[2021-11-17] MEDS: ASPIRIN 81 MG CHEW TAB PO SCH (09:17)
[2021-11-17] MEDS: CALCIUM CARBONATE 500 MG CHEWABLE TABS PO SCH (09:18)
[2021-11-17] MEDS: CYANOCOBALAMIN 1,000 MCG TAB PO SCH (09:18)
[2021-11-17] MEDS: CHOLECALCIFEROL 1,000 UNIT TAB PO SCH (09:18)
[2021-11-17] MEDS: METOPROLOL SUCCINATE 25 MG TAB XL PO SCH (09:19)
[2021-11-17 10:09] VITALS: BP 131/69
== END 2021-11-17 10:40 | disposition home or self-care (01) | DRG 511 ==
LOC: ER 12:53 → ERHOLD 14:59 → MED/SURG 16:42
PROVIDERS: ADMIT Internal Medicine; ATTEND Internal Medicine
PROC: 0PSL04Z Reposition Left Ulna with Internal Fixation Device, Open Approach (ICD-10-PCS; principal; 2021-11-16 12:07)
DX: S52.032A Displaced fracture of olecranon process with intraarticular extension of left ulna, initial encounter for closed fracture (principal); S32.512A Fracture of superior rim of left pubis, initial encounter for closed fracture; S01.112A Laceration without foreign body of left eyelid and periocular area, initial encounter; J44.9 Chronic obstructive pulmonary disease, unspecified; I11.9 Hypertensive heart disease without heart failure; M81.0 Age-related osteoporosis without current pathological fracture; F41.9 Anxiety disorder, unspecified; Z90.49 Acquired absence of other specified parts of digestive tract; W01.0XXA Fall on same level from slipping, tripping and stumbling without subsequent striking against object, initial encounter; Y93.01 Activity, walking, marching and hiking; Z96.643 Presence of artificial hip joint, bilateral; Z87.891 Personal history of nicotine dependence; Y92.59 Other trade areas as the place of occurrence of the external cause; Z20.822 Contact with and (suspected) exposure to COVID-19
CPT/HCPCS: 36415; 70450; 71045; 72125; 73522; 76000; 80048; 80053; 85025; 85610; 90471; 90714; 94799; 99251; 99285; C1713; J0690; J1100; J1885; J2001; J2250; J2270; J2405; J2795; J3010; J7030

== ENCOUNTER 2022-03-10 10:14 | Emergency (ER) | payer MEDICARE, OTHER ==
[~2022-03-10] VITALS: Ht 160 cm; Wt 60.3 kg
[~2022-03-10 10:14] MED LIST changes: +XANAX1 MG PO
== END 2022-03-10 13:00 | disposition home or self-care (01) ==
LOC: ER 10:24
DX: S93.492A Sprain of other ligament of left ankle, initial encounter (principal); X50.1XXA Overexertion from prolonged static or awkward postures, initial encounter; Y93.01 Activity, walking, marching and hiking; Y92.89 Other specified places as the place of occurrence of the external cause; I10 Essential (primary) hypertension; J44.9 Chronic obstructive pulmonary disease, unspecified; J45.909 Unspecified asthma, uncomplicated
CPT/HCPCS: 99283

== ENCOUNTER 2024-03-14 09:25 | Emergency (ER) | payer MEDICARE, OTHER ==
[~2024-03-14] VITALS: Ht 160 cm; Wt 58.1 kg
[2024-03-14] MEDS: ALBUTEROL SULF 0.083% NEB SOLN 3 ML NEB NEB STA (10:03)
[2024-03-14 10:04] VITALS: PULSE 78; RESP 20
[2024-03-14] MEDS: IPRATROPIUM BROMIDE 0.02% 2.5 ML NEB NEB ONE (10:04)
[2024-03-14 10:31] LABS: BASOPHILS % 0.2 % (0.0-1.0); EOSINOPHILS # (AUTO) 0.1 (0.0-0.4); EOSINOPHILS % 0.6 % (0.0-6.0); HEMATOCRIT 37.9 % (34.2-44.1); HEMOGLOBIN 11.3 g/dL (12.0-16.0); LYMPHOCYTES # (AUTO) 0.5 (1.0-3.2); LYMPHOCYTES % 5.2 % (18.0-39.1); MEAN CORPUSCULAR HEMOGLOBIN 30.8 pg (28-32); MEAN CORPUSCULAR HGB CONC 29.8 g/dL (31-35); MEAN CORPUSCULAR VOLUME 103.3 fL (81-99); MONOCYTES # (AUTO) 0.5 (0.2-0.8); MONOCYTES % 5.6 % (4.4-11.3); NEUTROPHILS # (AUTO) 8.2 (2.1-6.9); NEUTROPHILS % 88.2 % (38.7-80.0); PLATELET COUNT 244 x10e3/uL (140-360); RED BLOOD COUNT 3.67 x10e6/uL (3.6-5.1); RED CELL DISTRIBUTION WIDTH 13.8 % (11.7-14.4); WHITE BLOOD COUNT 9.28 x10e3/uL (4.8-10.8)
[2024-03-14] MEDS: METHYLPREDNISOLONE SOD SUCC 125 MG/2ML VIAL IV ONE (10:37)
[2024-03-14 10:44] LABS: INFLUENZA A AG NEGATIVE (NEGATIVE); INFLUENZA B AG NEGATIVE (NEGATIVE)
[2024-03-14 10:45] LABS: CORONAVIRUS COVID-19 AG NEGATIVE (NEGATIVE)
[2024-03-14 11:06] LABS: ALBUMIN 4.1 g/dL (3.5-5.0); ALBUMIN/GLOBULIN RATIO 1.3 (0.8-2.0); ANION GAP 17.1 mmol/L (8-16); BILIRUBIN,TOTAL 0.5 mg/dL (0.2-1.2); CALCIUM 9.7 mg/dL (8.4-10.2); CREATININE, SERUM 0.78 mg/dL (0.57-1.11); POTASSIUM 4.1 mmol/L (3.5-5.1); TOTAL PROTEIN 7.3 g/dL (6.5-8.1)
[2024-03-14 12:08] VITALS: PULSE 100; RESP 20; TEMP 99.1; O2SAT 94
[2024-03-14] MEDS ORDERED: SINGULAIR10 MG PO (12:12)
== END 2024-03-14 12:20 | disposition home or self-care (01) ==
LOC: ER 09:32
DX: R06.00 Dyspnea, unspecified (principal); R07.89 Other chest pain; R50.9 Fever, unspecified; R11.2 Nausea with vomiting, unspecified; R05.9 Cough, unspecified; I10 Essential (primary) hypertension; J44.9 Chronic obstructive pulmonary disease, unspecified; J45.909 Unspecified asthma, uncomplicated; M19.09 Primary osteoarthritis, other specified site
CPT/HCPCS: 36415; 71045; 80053; 83605; 83880; 84484; 85025; 87040; 87428; 93005; 99284; J2919